=== PATIENT | female | born 1985 | race Caucasian/White ===

== ENCOUNTER 2019-03-10 18:44 | Inpatient (IN) ==
[2019-03-10] MEDS ORDERED: ACETAMINOPHEN 1,000 MG/100 ML VIAL IV STA (19:02)
[2019-03-10] MEDS ORDERED: KETOROLAC TROMETHAMINE 15 MG/ML VIAL IV STA (19:02)
[2019-03-10] MEDS ORDERED: SODIUM CHLORIDE 0.9% 1000ML 2,000 ML IV ONE (19:02)
[2019-03-10] MEDS ORDERED: DEXAMETHASONE SOD PHOSPHATE 10 MG in SYRINGE 0 ML IV STA (19:02)
[2019-03-10] MEDS ORDERED: AMPICILLIN/SULBACTAM SOD 3,000 MG in 0.9 % SODIUM CHLORIDE 100 ML IV STA (19:04)
[2019-03-10] MEDS ORDERED: DEXAMETHASONE **PF** INJ 10 MG/ML VIAL ONE (19:24)
[2019-03-10 19:30] LABS: Basophils # (auto) 0.02 K/uL (0-0.2); Basophils % (auto) 0.1 %; Eosinophils # (auto) 0.04 K/uL (0-0.5); Eosinophils % (auto) 0.2 %; Hematocrit (blood only) 38.9 % (37-47); Hemoglobin 13.5 g/dL (12.0-16.0); Immature Granulocytes # (auto) 0.07 K/uL (0.00-0.02); Immature Granulocytes % (auto) 0.4 %; Lymphocytes # (auto) 0.89 K/uL (1.2-3.4); Lymphocytes % (auto) 4.6 %; Mean Corpuscular Hgb Conc 34.7 g/dL (32-36); Mean Corpuscular Volume 87.6 fL (80-100); Mean Platelet Volume 10.6 fL (7.4-10.4); Monocytes # (auto) 1.53 K/uL (0.11-0.59); Neutrophils # (auto) 16.65 K/uL (1.4-6.5); Neutrophils % (auto) 86.7 %; Platelet Count 138 K/uL (130-400); RDW Coefficient of Variation 13.7 % (11.5-14.5); Red Blood Count 4.44 M/uL (4.2-5.4)
[2019-03-10 19:49] LABS: Albumin Level 3.6 gm/dl (3.4-5.0); BUN Creatinine Ratio 7.6 (10-20); Creatinine Clr Calc Pharmacy 79.1 ml/min; Est GFR (African American) 83.3; Est GFR (Non-African American) 71.9; Potassium 3.2 mmol/L (3.5-5.1)
[2019-03-10 19:52] LABS: Albumin Globulin Ratio 0.9 (0.9-2); Bilirubin,Total 0.5 mg/dl (0.2-1); Globulin 3.9 gm/dl (2.5-4.0); Total Protein 7.5 gm/dl (6.4-8.2)
[2019-03-10 20:19] LABS: Pregnancy Test, Serum Negative (Negative)
[2019-03-10] MEDS ORDERED: IOVERSOL 100ml IV PRN (20:31)
--- NOTE | 2019-03-10 20:45 | CT Scan Report ---
CT SCAN OF THE NECK WITH IV CONTRAST CLINICAL HISTORY: Dysphagia. Trismus. Left-sided neck pain and lump. COMPARISON STUDY: CT scan of the cervical spine dated 11/17/2013. TECHNIQUE: Following the IV administration of 94 cc of Optiray 320, CT scan of the soft tissues of th e neck was performed from the skull base to the upper chest. Images are reviewed in the axial, sagitt al, and coronal planes. IV contrast was administered without complication. A dose lowering techniqu e was utilized adhering to the principles of ALARA. CT DOSE: 618.04 mGy.cm FINDINGS: Pharynx: There is marked mucosal thickening and hyperemia involving the oropharyngeal soft tissues. T his significantly narrows the airway. Phlegmonous change is noted within the tonsils, left greater th an right. No organized fluid collection is clearly seen to indicate abscess. Inflammatory change is s een within the submental and submandibular soft tissues. There is mild edema of the retropharyngeal s oft tissues. There is infiltration of the left parapharyngeal fat. The vocal cords are symmetric. The epiglottis is normal. Dentition: Numerous dental caries are identified. No periapical lucencies or cortical breakthrough is seen. Lymphadenopathy: There are numerous mildly enlarged cervical lymph nodes bilaterally, left greater th an right. The largest is on the left seen on image #179. This measures 2.4 x 1.4 cm. Thyroid: Normal in size and attenuation. A 5 mm low-attenuation nodule is noted in the right lobe. Salivary glands: The parotid glands and right submandibular gland are normal in appearance. The left submandibular gland appears mildly enlarged and edematous, with surrounding fluid. Brain parenchyma: The visualized brain parenchyma at the skull base is normal in appearance. Vascular structures: The carotid arteries and jugular veins are widely patent. Skeletal structures: Imaged portions of the calvarium at the skull base are within normal limits. The cervical spine appears intact. Orbits: The bony orbits are intact. Orbital contents are normal in appearance. Sinuses and mastoids: The visualized paranasal sinuses are clear. The mastoid air cells are well pneu matized. Lung apices: Visualized apical lung parenchyma is clear. IMPRESSION: 1. Findings consistent with severe pharyngitis/tonsillitis. 2. Phlegmonous change is identified in the tonsils with no organized fluid collection clearly identif ied. 3. There is significant inflammatory change surrounding the pharynx which involves the sublingual, mccray bmental, retropharyngeal, and left parapharyngeal spaces. The appearance is highly concerning for Dane wig's angina. 4. There is significant narrowing of the oropharyngeal airway. 5. Inflammatory change involving the left submandibular gland likely represents a secondary adenitis. Clinical correlation will be required. 6. There are numerous dental caries identified. No periapical lucencies or cortical breakthrough are seen. 7. Numerous mildly enlarged cervical lymph nodes are likely on a reactive basis. 8. The jugular veins are patent bilaterally. Electronically signed by: Dane Sykes M.D. 03/10/2019 8:43 PM
[2019-03-10] MEDS ORDERED: LACTATED RINGER'S 1,000 ML IV STA (20:47)
[2019-03-10] MEDS ORDERED: PIPERACILLIN/TAZOBACTAM 4.5 GM/120 ML BAG IV ONE ×2 (20:47→20:48)
[2019-03-10] MEDS ORDERED: PIPERACILL/TAZOBAC CONSULT ACTIVE PRN (20:47)
--- NOTE | 2019-03-10 21:53 | Emergency Department Note ---
Entered by Tasha Ryan acting as a scribe for History of Present Illness General Chief complaint: Throat Pain Stated complaint: THROAT GLANDS SWOLLEN UNABLE TO SWALLOW Time Seen by Provider: 03/10/19 18:51 Source: patient History of Present Illness Onset (ago): day(s) 2 Location: mouth (throat ) Pain Consistency: + other (worsening) Maximum Pain Intensity: 10 Associated symptoms: + other (positive difficulty swallowing; positive swollen) Treatments prior to arrival: other (Augmentin) The patient is a 33 year old female who presents to the Emergency Room with complaints of worsening throat pain that began 2 days prior to arrival. The patient states that her throat is swollen and she is unable to swallow without pain. She states that she has more pain on her left side than right side of her throat. The patient states that she was seen here yesterday for fluid in her ear and similar symptoms and was given Augmentin. Home Medications Home Medications Medication Instructions Recorded Confirmed Type ibuprofen 400 mg PO BID PRN 05/24/18 03/10/19 History omeprazole 20 mg PO QPM 05/24/18 03/10/19 History quetiapine 100 mg PO BID 05/24/18 03/10/19 History amoxicillin-pot clavulanate 1 tab PO Q12H 10 Days #20 tab 03/09/19 03/10/19 Rx [Augmentin] bupropion HCl [Wellbutrin SR] 150 mg PO BID 03/09/19 03/10/19 History Allergies Allergy/AdvReac Type Severity Reaction Status Date / Time tramadol Allergy Intermediate RASH Verified 03/10/19 19:11 Fish Containing Products Allergy Unknown Unknown Verified 03/10/19 19:11 Past Med/Surg History Medical History Accidental overdose of heroin (Acute) Chronic dental pain (Acute) Social History Preferred Language: Wolof Current Living Situation: Other Feels Safe at Home: Yes Smoking Status: Current every day smoker Hx Substance Use: Yes Review of Systems See HPI for pertinent positives & negatives. and A total of 10 systems reviewed and were otherwise negative Physical Exam Vital Signs Vital Signs - 24 hr 03/10/19 18:47 03/10/19 19:29 03/10/19 19:30 Temperature 37.9 C H Temperature Source Oral Sepsis Recent Fever Within 48 Hours No Sepsis New/Unexplained Change in Mental Status No Sepsis Action Taken by Nursing No Action Required Pulse Rate 134 H 122 H Pulse Rate [Apical] 124 H Pulse Rate from SpO2 Sensor 124 H Respiratory Rate 16 25 H 20 Blood Pressure 117/75 115/80 Blood Pressure [Left Arm] 115/80 Blood Pressure Mean 89 91 Blood Pressure Mean [Left Arm] 91 Pulse Oximetry 100 100 97 Oxygen Delivery Method Room Air Room Air Room Air 03/10/19 20:00 03/10/19 21:00 03/10/19 21:30 Temperature Temperature Source Sepsis Recent Fever Within 48 Hours Sepsis New/Unexplained Change in Mental Status Sepsis Action Taken by Nursing Pulse Rate 113 H 108 H 106 H Pulse Rate [Apical] Pulse Rate from SpO2 Sensor 113 H 108 H 106 H Respiratory Rate 15 23 17 Blood Pressure 110/81 105/76 121/80 Blood Pressure [Left Arm] Blood Pressure Mean 90 85 93 Blood Pressure Mean [Left Arm] Pulse Oximetry 100 99 98 Oxygen Delivery Method Room Air Room Air Room Air 03/10/19 21:39 Temperature Temperature Source Sepsis Recent Fever Within 48 Hours Sepsis New/Unexplained Change in Mental Status Sepsis Action Taken by Nursing Pulse Rate 110 H Pulse Rate [Apical] Pulse Rate from SpO2 Sensor Respiratory Rate 26 H Blood Pressure 114/76 Blood Pressure [Left Arm] Blood Pressure Mean 88 Blood Pressure Mean [Left Arm] Pulse Oximetry Oxygen Delivery Method GENERAL: Awake, alert, uncomfortable-appearing, in no distress HENT: Normocephalic, atraumatic. Poor dentition. Moderate to severe posterior pharyngeal edema that is asymmetric with fullness of the left peritonsillar region and soft palette. Mild tongue elevation and trismus with submandibular fullness and tenderness without crepitus. No pain with tracheal manipulation. Mild left ear effusion without injection. EYES: Normal conjunctiva. Sclera non-icteric. NECK: Supple. No nuchal rigidity. FROM. No JVD. RESPIRATORY: CTAB. No stridor. CARDIAC: Tachycardic rate, normal rhythm. Extremities warm and well perfused. Pu lses equal. ABDOMEN: Soft, non-distended. No tenderness to palpation. No rebound or guarding. No masses. RECTAL: Deferred. MUSCULOSKELETAL: Chest examination reveals no tenderness. The back is symmetr ical on inspection without obvious abnormality. There is no CVA tenderness to palpation. No joint edema. LOWER EXTREMITIES: Calves are equal size bilaterally and non-tender. No edema. No discoloration. NEURO: Normal sensorium. No sensory or motor deficits noted. SKIN: No rash or jaundice noted. Course 1852: Past medical records reviewed. The patient was evaluated in room B8. A complete history and physical exam was performed. 2008: I discussed the case with Dr. [facility] who agreed with the plan for further evaluation in the hospital and IV antibiotics. She states that given the airway is fine at this point, there is no need for emergent intervention and the inpatient team can consult them. 2052: I discussed the case with [facility] who accepts the patient for further evaluation. 2105: Upon reevaluation, the patient is feeling better. She is able to swallow more comfortably now and is agreeable to further evaluation. Consultations Consultation #1: I discussed the case with Dr. Canada-[facility] who agreed with the plan for further evaluation in the hospital and IV antibiotics. She states that given the airway is fine at this point, there is no need for emergent intervention and the inpatient team can consult them. Time: 20:09 Consultation #2: I discussed the case with Dr. Rodríguez Hospitalist who accepts the patient for further evaluation. Time: 20:53 Administered Medications Piperacillin Sod/Tazobactam Sod (Zosyn) 4.5 gm in 120 mls @ 30 mls/hr IV NOW ONE Stop: 03/11/19 00:46 Last Infusion: 03/10/19 22:08 Dose: 0 mls/hr Documented by: [id number] Admin: 03/10/19 21:07 Dose: 200 mls/hr Documented by: [id number] Ioversol (Optiray 320 100ml) 94 ml IV ONCE PRN PRN Reason: Interaction Checking Stop: 03/14/19 20:30 Last Admin: 03/10/19 20:31 Dose: 94 ml Documented by: [id number] Discontinued Medications Dexamethasone Sodium Phosphate (Decadron Pf) Confirm Administered Dose 10 mg .ROUTE .STK-MED ONE Stop: 03/10/19 19:25 Last Admin: 03/10/19 19:38 Dose: 10 mg Documented by: [id number] Acetaminophen (Ofirmev) 1,000 mg in 100 mls @ 400 mls/hr IV NOW STA Stop: 03/10/19 19:16 Last Infusion: 03/10/19 19:36 Dose: 0 mls/hr Documented by: [id number] Admin: 03/10/19 19:21 Dose: 400 mls/hr Documented by: [id number] Ampicillin Sodium/Sulbactam Sodium 3,000 mg/ Sodium Chloride 108 mls @ 200 mls/hr IV NOW STA; Protocol Stop: 03/10/19 19:36 Last Infusion: 03/10/19 20:14 Dose: 0 mls/hr Documented by: [id number] Admin: 03/10/19 19:41 Dose: 200 mls/hr Documented by: [id number] Dexamethasone Sodium Phosphate (10 mg/ Syringe) 2.5 mls @ 1 mls/min IV NOW STA Stop: 03/10/19 19:04 Last Admin: 03/10/19 19:38 Dose: Not Given Documented by: [id number] Sodium Chloride (Nss 1000ml) 2,000 mls @ 999 mls/hr IV .Q2H1M ONE Stop: 03/10/19 21:02 Last Infusion: 03/10/19 21:23 Dose: 0 mls/hr Documented by: [id number] Admin: 03/10/19 19:22 Dose: 999 mls/hr Documented by: [id number] Lactated Ringer's (Lr) 1,000 mls @ 999 mls/hr IV .Q1H1M STA Stop: 03/10/19 21:47 Last Infusion: 03/10/19 22:45 Dose: 0 mls/hr Documented by: [id number] Admin: 03/10/19 22:08 Dose: 999 mls/hr Documented by: [id number] Piperacillin Sod/Tazobactam Sod (Zosyn) 4.5 gm in 120 mls @ 30 mls/hr IV NOW ONE Stop: 03/11/19 00:47 Last Admin: 03/10/19 22:27 Dose: Not Given Documented by: [id number] Ketorolac Tromethamine (Toradol) 15 mg IV NOW STA Stop: 03/10/19 19:03 Last Admin: 03/10/19 19:21 Dose: 15 mg Documented by: [id number] Medical Decision Making Differential Diagnosis Differential diagnosis: Etiologies such as viral syndrome, tonsillitis, streptococcal pharyngitis, mononucleosis, peritonsillar abscess, retropharyngeal abscess, otitis, pneumonia, influenza, as well as others were entertained. Medical Records Attestation: I reviewed the patient's medical records. Home Medications Current Medication List: was personally reviewed by me Laboratory Data Attestation: I reviewed the patient's lab results. Result diagrams: 03/10/19 19:08 03/10/19 19:08 Lab Results 03/10/19 03/10/19 03/10/19 Range/Units 19:08 19:08 19:08 WBC 19.20 H (4.8-10.8) K/uL RBC 4.44 (4.2-5.4) M/uL Hgb 13.5 (12.0-16.0) g/dL Hct 38.9 (37-47) % MCV 87.6 (80-100) fL MCH 30.4 (25-34) pg MCHC 34.7 (32-36) g/dL RDW Std Deviation 44.0 (36.4-46.3) fL RDW Coeff of [place] 13.7 (11.5-14.5) % Plt Count 138 (130-400) K/uL MPV 10.6 H (7.4-10.4) fL Immature Gran % (Auto) 0.4 % Neut % (Auto) 86.7 % Lymph % (Auto) 4.6 % [place] % (Auto) 8.0 % Eos % (Auto) 0.2 % Baso % (Auto) 0.1 % Immature Gran # (Auto) 0.07 H (0.00-0.02) K/uL Neut # (Auto) 16.65 H (1.4-6.5) K/uL Lymph # (Auto) 0.89 L (1.2-3.4) K/uL [place] # (Auto) 1.53 H (0.11-0.59) K/uL Eos # (Auto) 0.04 (0-0.5) K/uL Baso # (Auto) 0.02 (0-0.2) K/uL Sodium 139 (136-145) mmol/L Potassium 3.2 L (3.5-5.1) mmol/L Chloride 104 (98-107) mmol/L Carbon Dioxide 25 (21-32) mmol/L Anion Gap 10.0 (3-11) BUN 8 (7-18) mg/dl Creatinine 1.03 (0.6-1.2) mg/dl Est Cr Clr Drug Dosing 79.1 ml/min Est GFR ( Amer) 83.3 Est GFR (Non-Af Amer) 71.9 BUN/Creatinine Ratio 7.6 L (10-20) Glucose 146 H (70-99) mg/dl Calcium 9.0 (8.5-10.1) mg/dl Total Bilirubin 0.5 (0.2-1) mg/dl AST 6 L (15-37) U/L ALT 15 (12-78) U/L Alkaline Phosphatase 77 (45-117) U/L Total Protein 7.5 (6.4-8.2) gm/dl Albumin 3.6 (3.4-5.0) gm/dl Globulin 3.9 (2.5-4.0) gm/dl Albumin/Globulin Ratio 0.9 (0.9-2) HCG, Qual Negative (Negative) Imaging Data Radiologist's Impression: Radiology results as stated below per my review and the radiologist's interpretation: CT SCAN OF THE NECK WITH IV CONTRAST CLINICAL HISTORY: Dysphagia. Trismus. Left-sided neck pain and lump. COMPARISON STUDY: CT scan of the cervical spine dated 11/17/2013. TECHNIQUE: Following the IV administration of 94 cc of Optiray 320, CT scan of the soft tissues of the neck was performed from the skull base to the upper c hest. Images are reviewed in the axial, sagittal, and coronal planes. IV contrast was administered without complication. A dose lowering technique was utilized adhering to the principles of ALARA. CT DOSE: 618.04 mGy.cm FINDINGS: Pharynx: There is marked mucosal thickening and hyperemia involving the oropharyngeal soft tissues. This significantly narrows the airway. Phlegmonous change is noted within the tonsils, left greater than right. No organized fluid collection is clearly seen to indicate abscess. Inflammatory change is seen within the submental and submandibular soft tissues. There is mild edema of the retropharyngeal soft tissues. There is infiltration of the left parapharyngeal fat. The vocal cords are symmetric. The epiglottis is normal. Dentition: Numerous dental caries are identified. No periapical lucencies or cortical breakthrough is seen. Lymphadenopathy: There are numerous mildly enlarged cervical lymph nodes bilaterally, left greater than right. The largest is on the left seen on image #179. This measures 2.4 x 1.4 cm. Thyroid: Normal in size and attenuation. A 5 mm low-attenuation nodule is noted in the right lobe. Salivary glands: The parotid glands and right submandibular gland are normal in appearance. The left submandibular gland appears mildly enlarged and edematous, with surrounding fluid. Brain parenchyma: The visualized brain parenchyma at the skull base is normal in appearance. Vascular structures: The carotid arteries and jugular veins are widely patent. Skeletal structures: Imaged portions of the calvarium at the skull base are within normal limits. The cervical spine appears intact. Orbits: The bony orbits are intact. Orbital contents are normal in appearance. Sinuses and mastoids: The visualized paranasal sinuses are clear. The mastoid air cells are well pneumatized. Lung apices: Visualized apical lung parenchyma is clear. IMPRESSION: 1. Findings consistent with severe pharyngitis/tonsillitis. 2. Phlegmonous change is identified in the tonsils with no organized fluid collection clearly identified. 3. There is significant inflammatory change surrounding the pharynx which involves the sublingual, submental, retropharyngeal, and left parapharyngeal spaces. The appearance is highly concerning for David's angina. 4. There is significant narrowing of the oropharyngeal airway. 5. Inflammatory change involving the left submandibular gland likely represents a secondary adenitis. Clinical correlation will be required. 6. There are numerous dental caries identified. No periapical lucencies or cortical breakthrough are seen. 7. Numerous mildly enlarged cervical lymph nodes are likely on a reactive basis. 8. The jugular veins are patent bilaterally. Electronically signed by: Dane Sykes M.D. 03/10/2019 8:43 PM Blood Pressure Blood Pressure Findings: Normal blood pressure MDM Narrative The patient is a pleasant 33-year-old woman with a past medical history of prior heroin abuse who presents emergency department with worsening sore throat and painful swallowing after being seen in the ED yesterday for primarily left ear pain in the setting of a diagnosis last winter of chronic ear effusion per hpi. Arrival patient is uncomfortable but no acute distress, temperature of 37.9 and tachycardic to 130s but vital signs otherwise stable. Patient denies chest pain or shortness of breath. On exam the patient has moderate to severe posterior pharyngeal edema and injection that is asymmetric with fullness of the left peritonsillar region and soft palate. There is mild tongue elevation and trismus but patient is able to handle her own secretions without difficulty. She has moderate tenderness and fullness to the submandibular region without crepitus. There is no pain with tracheal manipulation or stridor. WBC 19 K. H/H and platelets within normal limits. Chemistry without acidosis. LFTs unremarkable. Given concern for possible David angina CT of the neck was ordered and pending. Given strong suspicion for likely peritonsillar abscess I did discuss the case with Dr. Canada, ENT on-call and we agreed that given the patient's airway is intact, there is no role for emergent intervention at this time and agrees with plan for admission for IV antibiotics and steroids. Recommends 10 mg of IV dexamethasone daily and agrees with broad-spectrum antibiotics if CT confirm David's angina. Blood cultures were drawn prior to initial dose of Unasyn however upon CT report which demonstrated extensive infiltration involving the sublingual, submental, retropharyngeal, and left parapharyngeal spaces, patient was ordered for Zosyn. While CT describes airway narrowing, the patient has no clinical evidence of airway compromise. Throat culture additionally obtained and pen after rapid strep negative. Upon reevaluation patient was feeling improved with less discomfort with swallowing. HR improved from 130s to 100s with BP remaining stable. Patient was agreeable for admission. Case was discussed with Dr. Reece, [facility] hospitalist, who will evaluate the patient for admission. Impression & Plan David's angina, Leukocytosis Critical Care Time Critical Care Time: Yes Total Critical Care Time: 35 I have personally spent 35 minutes of critical care time in the direct management of this patient. This includes bedside care, interpretation of diagnostic studies, and testing, discussion with consultants, patient, and fa oneyda members, and other required patient management activities. This 35 minutes is in excess of all separately billable procedures. Discharge Plan Visit Data Chief Complaint: Throat Pain Stated Complaint: THROAT GLANDS SWOLLEN UNABLE TO SWALLOW ED Provider: Fazal White Discharge Problem: David's angina, Leukocytosis Patient Disposition: Being Evaluated by Hospitalist Discharge Instructions Interventions: ED Discharge Assessment Last Done: 03/10/19 22:44 Discharge Problem: Leukocytosis Qualifiers: Leukocytosis type: unspecified Qualified Code(s): D72.829 - Elevated white blood cell count, unspecified The scribe's documentation has been prepared under my direction and personally reviewed by me in its entirety. I confirm that the note above accurately reflects all work, treatment, procedures, and medical decision making performed by me.
[2019-03-10] MEDS ORDERED: NITROGLYCERIN SL 0.4 MG/TAB TAB SL PRN (22:55)
[2019-03-10] MEDS ORDERED: ACETAMINOPHEN 325 MG TAB PO PRN (22:55)
[2019-03-10] MEDS ORDERED: POTASSIUM CHLORIDE 10 MEQ TABCR PO STA (22:55)
[2019-03-10] MEDS ORDERED: ONDANSETRON INJ 2 MG/ML 2 ML VIAL IV PRN (22:55)
[2019-03-10] MEDS ORDERED: cefTRIAXone SODIUM 2,000 MG in DEXTROSE 5% 50 ML IV SCH (23:00)
[2019-03-10] MEDS: D5NSS + 20MEQ KCL 20 MEQ/1,000 ML BAG IV SCH (23:27)
[2019-03-10] MEDS: metroNIDAZOLE 500 MG/100 ML BAG IV SCH (23:27)
[2019-03-10] MEDS: QUETIAPINE FUMARATE 100 MG TABLET PO SCH (23:27)
[2019-03-10] MEDS: BuPROPion SR 150 MG TABCR PO SCH (23:28)
--- NOTE | 2019-03-11 00:33 | History and Physical Report ---
DATE OF ADMISSION: 03/10/2019 CHIEF COMPLAINT: Throat pain. HISTORY OF PRESENT ILLNESS: This is a 33-year-old female with past medical history significant for otalgia of left ear, history of anxiety and depression, who comes because of throat pain that started on last Monday, she was in the ER yesterday.Was Augmentin and advised to follow with her ENT, but it was not getting better. Had some temperature at home. She states she had some headaches, mild cough, mild shortness of breath and came to the ER. In the ER, the imaging studies show possible David's angina, severe pharyngitis, tonsillitis,and oropharyngeal narrowing. Vitals are stable. She is saturating fine on room air. 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 Currently, patient is resting comfortably. Denies any blurred vision. Has some earaches in the left ear. Has some runny nose, no difficulty swallowing. No chest pain, no nausea, no vomiting, no abdominal pain. Normal bowel and bladder movements. No hematuria, no burning micturition, no black stools, no blood in the stools. No swelling in the legs, no rash. ALLERGIES: TRAMADOL, FISH CONTAINING PRODUCTS. PAST MEDICAL HISTORY: As mentioned above. PAST SURGICAL HISTORY: [place] tooth removal and incomplete . MEDICATIONS: The patient is on Wellbutrin, omeprazole, and Seroquel. FAMILY HISTORY: Significant for mother had ovarian cancer. SOCIAL HISTORY: Smokes half pack a day. No alcohol use, no drug use. REVIEW OF SYMPTOMS: As per HPI. Rest of the review of symptoms negative. PHYSICAL EXAMINATION: GENERAL: The patient is of moderate built, not in acute distress. VITAL SIGNS: Temperature 37.9, pulse 106, respiratory rate 12, blood pressure 121/80, oxygen 98% on room air. HEENT: No pallor, no icterus. Pupils equal, round, and reactive to light. Oral mucosa, swollen tonsils, swollen oropharynx, erythematous pharynx. NECK: No JVD, no neck masses. CARDIOVASCULAR: S1, S2 heard, regular rate and rhythm, no murmur, no gallop. RESPIRATORY SYSTEM: Normal AP diameter. No accessory muscle use. No wheezing, no crackles. ABDOMEN: Soft, bowel sounds present, nontender. No distention. CENTRAL NERVOUS SYSTEM: Nonfocal. EXTREMITIES: No edema, no erythema. LABORATORY DATA: WBC 19.2, hemoglobin 13.5, hematocrit 38.9, platelets 138. Sodium 139, potassium 3.2, chloride 104, bicarbonate 25, BUN 8, creatinine 1.03, serum glucose 146, calcium 9, total bilirubin 0.5, AST 6, ALT 15, alkaline phosphatase 77. HCG quantitative negative. CT scan Soft tissue of the neck shows findings consistent with severe pharyngitis, tonsillitis, phlegmonous changes, and inflamed tonsils. There is no organized fluid collection clearly identified. There is significant inflammatory change seen in the pharynx which is noted to be sublingual, submental ,left parapharyngeal space appearance is highly concerning for David's angina. There is significant narrowing of the oropharyngeal airway. Inflammatory change involving the left submandibular gland, likely represents secondary to adenitis. Numerous dental caries identified. No periapical lucencies or cortical breakthrough are seen. Numerous mildly enlarged cervical lymph nodes, likely on a reactive basis. Jugular veins are patent bilaterally. ASSESSMENT AND PLAN: This is a 33-year-old female who presents with severe pharyngitis, tonsillitis, and David's angina. 1. Severe pharyngitis, tonsillitis, and David's angina . The patient is hemodynamically stable, saturating fine, though the CAT scan shows severe narrowing of the oropharyngeal airway. ENT was called by the ER and advised antibiotics.We will keep patient n.p.o. IV Rocephin 2 grams daily and IV Flagyl 500 mg t.i.d. Iv fluids. Monitor in tele floor. Consult ENT in the a.m. for further recommendation and monitoring. Follow the cultures drawn in the ER and follow the response . 2. Hypokalemia. We will replace. 3. Anxiety and depression. Continue home medications. 4. Deep venous thrombosis prophylaxis, sequential compression devices. DISPOSITION: Admit to tele floor. Expect to discharge home and follow with her family doctor. Level 1 full code. MTDD
[2019-03-11 05:30] LABS: Basophils # (auto) 0.01 K/uL (0-0.2); Basophils % (auto) 0.1 %; Hematocrit (blood only) 35.1 % (37-47); Hemoglobin 11.9 g/dL (12.0-16.0); Immature Granulocytes # (auto) 0.05 K/uL (0.00-0.02); Immature Granulocytes % (auto) 0.3 %; Lymphocytes # (auto) 0.53 K/uL (1.2-3.4); Mean Corpuscular Hgb Conc 33.9 g/dL (32-36); Mean Corpuscular Volume 88.9 fL (80-100); Mean Platelet Volume 10.5 fL (7.4-10.4); Monocytes % (auto) 1.7 %; Neutrophils # (auto) 16.96 K/uL (1.4-6.5); Neutrophils % (auto) 94.9 %; Platelet Count 135 K/uL (130-400); RDW Coefficient of Variation 13.6 % (11.5-14.5); RDW Standard Deviation 44.8 fL (36.4-46.3); Red Blood Count 3.95 M/uL (4.2-5.4); White Blood Count 17.85 K/uL (4.8-10.8)
[2019-03-11] MEDS: D5NSS + 20MEQ KCL 20 MEQ/1,000 ML BAG IV SCH ×2 (05:30→15:57)
[2019-03-11 05:58] LABS: BUN Creatinine Ratio 10.4 (10-20); Calcium 8.1 mg/dl (8.5-10.1); Creatinine Clr Calc Pharmacy 107.2 ml/min; Est GFR (African American) 120.3; Est GFR (Non-African American) 103.8; Magnesium 2.1 mg/dl (1.8-2.4)
[2019-03-11] MEDS: metroNIDAZOLE 500 MG/100 ML BAG IV SCH ×2 (07:34→15:57)
--- NOTE | 2019-03-11 08:02 | Hospitalist Progress Note ---
Date of Service March 11, 2019 Assessment & Plan (1) David's angina: Patient is a 33-year-old female with past medical history of anxiety, comes to ED with complaint of severe throat pain for 3 days. Was in ER yesterday, given Augmentin and advised to follow-up with ENT. Developed fever at home with headache, mild cough/shortness of breath, runny nose which brought her to ED. Imaging showed David's angina, severe pharyngitis, tonsillitis and oropharyngeal narrowing. Severe pharyngitis/tonsillitis/David's angina : Clinically improving Presented to ED again for severe throat pain for 3 days associated with headache, mild cough/shortness of breath, runny nose. CT neck soft tissue consistent with severe pharyngitis/tonsillitis phlegmonous changes in tonsils, significant inflammatory change around pharynx involving sublingual, submental, retropharyngeal, left parapharyngeal spaces highly concerning for David's angina, significant narrowing of oropharyngeal airway. Inflammatory change involving left submandibular gland likely representing a secondary adenitis, numerous dental caries, numerous mildly enlarged cervical lymph nodes. No significant fever spikes, leukocytosis trending down from 19k to 17k SaO2 well on RA with no hypoxia -NPO --> Advance to soft diet -IV Rocephin 2 gram, IV Flagyl 500 mg TID=---> Change to IV Rocephin 1 mg, continue with flagyl -Discussed with ENT-recommends adding IV dexamethasone 8 mg now and 1 more dose in evening. -Follow up throat cultures collected in ED. Strep- Pending Hypokalemia Resolved Anxiety/depression Continue with home medications DVT prophylaxis SCDs Full code Disposition Patient is very eager to be discharged. States that irrespective of the status she would go home today evening as she has couple of court dates. Discussed with ENTwill evaluate her in the evening prior to discharge and okay to follow-up with him outpatient if she is doing better. Expected discharge home when stable with follow-up with PCP Subjective Patient is feeling much better today. Has not required any IV Toradol. Throat pain is improved. No more fever spikes. Eager to be discharged today as has couple of court appointments Physical Exam Physical Exam: GENERAL- AAOX3, No acute distress HEENT- Difficulty opening mouth fully -tonsillitis with exudate, pharyngeal erythema NECK- Supple, no JVD LUNGS- Air entry bilaterally equal. No rales, rhonchi, crackles, wheezes heard. HEART- Regular rate and rhythm. No murmurs SKIN- No rashes Results & Data Vital Signs (Past 12 Hours) Vital Signs Temp Pulse Pulse Resp BP BP Pulse Ox 03/11/19 07:23 36.4 C L 94 H 16 108/66 96 03/11/19 05:32 103/66 03/11/19 03:26 36.4 C L 94 H 20 89/58 L 97 03/10/19 22:55 03/10/19 22:50 36.6 C 98 H 18 119/81 98 03/10/19 22:30 97 H 19 105/75 97 03/10/19 22:00 108 H 22 115/76 96 03/10/19 21:39 110 H 26 H 114/76 03/10/19 21:30 106 H 17 121/80 98 03/10/19 21:00 108 H 23 105/76 99 03/10/19 20:00 113 H 15 110/81 100 Pulse Ox 03/11/19 07:23 03/11/19 05:32 03/11/19 03:26 03/10/19 22:55 98 03/10/19 22:50 03/10/19 22:30 03/10/19 22:00 03/10/19 21:39 03/10/19 21:30 03/10/19 21:00 03/10/19 20:00
[2019-03-11] MEDS: QUETIAPINE FUMARATE 100 MG TABLET PO SCH ×2 (10:16→12:38)
[2019-03-11] MEDS: BuPROPion SR 150 MG TABCR PO SCH ×2 (10:16→12:38)
[2019-03-11] MEDS: KETOROLAC 30 MG/ML VIAL IV PRN ×2 (12:19→18:28)
[2019-03-11] MEDS ORDERED: cefTRIAXone SODIUM 1,000 MG in DEXTROSE 5% 50 ML IV SCH (12:30)
[2019-03-11] MEDS: DEXAMETHASONE SOD PHOSPHATE 8 MG in SYRINGE 0 ML IV SCH ×2 (12:35→18:25)
--- NOTE | 2019-03-11 18:33 | Discharge Summary ---
Date of Service March 11, 2019 Admission HPI Per Admitting Provider HISTORY OF PRESENT ILLNESS: This is a 33-year-old female with past medical history significant for otalgia of left ear, history of anxiety and depression, who comes because of throat pain that started on last Monday, she was in the ER yesterday.Was Augmentin and advised to follow with her ENT, but it was not getting better. Had some temperature at home. She states she had some headaches, mild cough, mild shortness of breath and came to the ER. In the ER, the imaging studies show possible David's angina, severe pharyngitis, tonsillitis,and oropharyngeal narrowing. Vitals are stable. She is saturating fine on room air. The ER physician talked to the ENT consumer studies professor and advised for antibiotics. Currently, patient is resting comfortably. Denies any blurred vision. Has some earaches in the left ear. Has some runny nose, no difficulty swallowing. No chest pain, no nausea, no vomiting, no abdominal pain. Normal bowel and bladder movements. No hematuria, no burning micturition, no black stools, no blood in the stools. No swelling in the legs, no rash. Principal Diagnosis 1. Severe Bilateral Tonsillitis 2. Hypokalemia Secondary diagnoses on discharge 1. Anxiety/depression Discharge Exam GENERAL- AAOX3, No acute distress HEENT- Difficulty opening mouth fully -tonsillitis with exudate, pharyngeal erythema NECK- Supple, no JVD LUNGS- Air entry bilaterally equal. No rales, rhonchi, crackles, wheezes heard. HEART- Regular rate and rhythm. No murmurs SKIN- No rashes Discharge Data Allergies Allergy/AdvReac Type Severity Reaction Status Date / Time tramadol Allergy Intermediate RASH Verified 03/10/19 19:11 Fish Containing Products Allergy Unknown Unknown Verified 03/10/19 19:11 Consultations 03/10/19 21:34 ED Decision to Admit Stat 03/11/19 08:00 Consult Otolaryngology (Head and Neck) Routine Ordered Studies 03/10/19 20:01 CT soft tissue neck w con Stat Hospital Course (1) David's angina: Patient is a 33-year-old female with past medical history of anxiety, comes to ED with complaint of severe throat pain for 3 days. Was in ER yesterday, given Augmentin and advised to follow-up with ENT. Developed fever at home with headache, mild cough/shortness of breath, runny nose which brought her to ED. Imaging showed David's angina, severe pharyngitis, tonsillitis and oropharyngeal narrowing. Severe pharyngitis/tonsillitis: Clinically improving Presented to ED again for severe throat pain for 3 days associated with headache, mild cough/shortness of breath, runny nose. CT neck soft tissue consistent with severe pharyngitis/tonsillitis phlegmonous changes in tonsils, significant inflammatory change around pharynx involving sublingual, submental, retropharyngeal, left parapharyngeal spaces highly concerning for David's angina, significant narrowing of oropharyngeal airway. Inflammatory change involving left submandibular gland likely representing a secondary adenitis, numerous dental caries, numerous mildly enlarged cervical lymph nodes. No significant fever spikes, leukocytosis trending down from 19k to 17k SaO2 well on RA with no hypoxia -Tolerating full liquid diet -IV Rocephin 1 gram, IV Flagyl 500 mg TID=---> Change to Augmentin X 8 more days to complete 10 days of antibiotics on discharge -IV Dexamathasone 8 mg x 2 doses received--> Change to Medrol dose pack on discharge -Throat culture , Strep- negative -Per ENT, this is not ludwigs angina as this is a clinical diagnosis not a radiographic diagnosis. She has bilateral tonsillitis with spontaneous decompression of a likely small left tushar-tonsillar abscess on exam. Hypokalemia Resolved Anxiety/depression Continue with home medications DVT prophylaxis SCDs Full code Disposition Patient is very eager to be discharged. States that irrespective of the status she would go home today evening as she has couple of court dates. Discussed with [facility] for discharge with follow up with them in 1 week Ok to discharge home today Total Time Total Time Spent Total Time Spent (In Minutes): 25 minutes Discharge Plan Discharge Items Patient Disposition: Home - Self-Care Reason For Visit: THROAT PAIN Discharge Diagnosis: Severe bilateral tonsillitis Discharge Goals: Improve disease control Activity: Resume your previous activity Non-emergency contact: Primary Care Provider Call non-emergency contact if: your symptoms worsen and your temperature is above 101.5 Follow-up/Referrals: Susy Carver DO [Primary Care Provider] - 03/15/19 10:45 am CARMEN PATTERSON [Other] (Office will call you for appt within 1 week) Diet: Regular Diet Texture: Mechanical soft (ground) Addtl Provider Instructions: You were admitted to the hospital for severe pharyngitis/tonsillitis/David's angina you were treated with IV antibiotics, IV steroids. MEDICATION CHANGES : 1. Augmentin PO twice a day for 8 more days to complete total of 10 days of antibiotics 2. Medrol dose pack as directed Diet- advance slowly as tolerated Eat low carbohydrate diet as blood sugars have been running high while on steroids. Prescriptions: New methylprednisolone [Medrol (Amadeo)] 4 mg tablets,dose pack 4 mg PO UD Qty: 21 RF: 0 Continued quetiapine 100 mg Tablet 100 mg PO BID RF: 0 ibuprofen 200 mg Tablet 400 mg PO BID PRN (Reason: Pain) RF: 0 omeprazole 20 mg Capsule,Delayed Release(Dr/Ec) 20 mg PO QPM RF: 0 amoxicillin-pot clavulanate [Augmentin] 875-125 mg tablet 1 tab PO Q12H 10 Days Qty: 20 RF: 0 bupropion HCl [Wellbutrin SR] 150 mg Tablet Sustained-Release 12 Hr 150 mg PO BID RF: 0 Stand-Alone Forms: [employer] [facility] [employer] [facility]/Other Patient Handouts: Pharyngitis Tonsillitis Discharge Orders: Discharge Order (Routine); Ordered 03/11/19 Ordered By: Cari Rogers Admission Data Admit Date/Time: 03/10/19 21:49 Attending Provider: Cari Rogers Admit Provider: João Reece Primary Care Provider: Susy Carver Other Providers: João Reece ; Carmela Shannon Service: Telemetry
--- NOTE | 2019-03-11 18:35 | ENT Consultation ---
Date of Consultation March 11, 2019 Assessment & Plan (1) Tonsillitis: Patient does not have David's angina. This is a clinical diagnosis, with support from radiography. Not a radiographic diagnosis alone. She has bilateral tonsillitis with spontaneous decompression of a likely small left peritonsillar abscess on exam. She is feeling much better on antibiotics and steroids. She is insistent she go home tonight. If she demands to go home, would ensure she is sent on antibiotic in addition to a prednisone taper. I will have my office call her to make a follow up appointment next week. Present on Admission?: Yes History of Present Illness Reason for Consultation: Attending Physician: Cari Rogers History of Present Illness 33 yo female with a several day history of sore throat, admitted last night after a CT scan was obtained in the ED showing bilateral tonsillar hypertrophy and reactive parapharyngeal and retropharyngeal changes. She had some trismus at that time. She was treated for one day with augmentin prior to her arrival to the ED last night. Was seen in the ED Monday and sent home with the Augmentin. She states that she is feeling markedly better this evening after antibiotic and steroid treatment in the hospital. She has told the hospitalist service she needs to leave tonight as she has court dates tomorrow. She denies recurrent tonsillitis. States that she did feel a spontaneous relief of left sided throat pressure this am and did then get some foul taste in her mouth. States her trismus improved. Denies any current dyspnea, shortness of breathe. Denies dysphagia. Allergies Allergy/AdvReac Type Severity Reaction Status Date / Time tramadol Allergy Intermediate RASH Verified 03/10/19 19:11 Fish Containing Products Allergy Unknown Unknown Verified 03/10/19 19:11 Home Medications Home Medications Medication Instructions Recorded Confirmed Type ibuprofen 400 mg PO BID PRN 05/24/18 03/10/19 History omeprazole 20 mg PO QPM 05/24/18 03/10/19 History quetiapine 100 mg PO BID 05/24/18 03/10/19 History amoxicillin-pot clavulanate 1 tab PO Q12H 10 Days #20 tab 03/09/19 03/10/19 Rx [Augmentin] bupropion HCl [Wellbutrin SR] 150 mg PO BID 03/09/19 03/10/19 History methylprednisolone [Medrol (Amadeo)] 4 mg PO UD #21 ea 03/11/19 Rx Patient History Medical History Accidental overdose of heroin (Acute) Chronic dental pain (Acute) Social History Preferred Language: Macedonian Communication Ability: Effective Associate Curator Required: No Beliefs That Will Affect Care: None Current Living Situation: Alone Other Information That Helps Us Care for You: No Feels Safe at Home: Yes Safety Concerns: Feels Safe At This Time Smoking Status: Current every day smoker Hx Alcohol Use: No Hx Substance Use: No Review of Systems Review of Systems: All systems reviewed & are unremarkable except as noted in HPI & below Physical Exam Constitutional: WD/WN, vitals as above well developed; + not well nourished Eyes: PERRL, conjunctivae normal, anicteric sclerae ENMT: Ears: no hearing impairment Nose: no external nose abnormality Throat: uvula midline and + posterior oropharynx abnormality Bilateral 3+ exudative tonsils. Left peritonsillar region with spontaneous decompressed area noted with some minimal purulence draining. No trismus. Floor of mouth is soft. Neck: trachea midline, no thyromegaly bilateral, left worse than right cervical adenopathy Respiratory: normal respiratory effort, lungs clear to auscultation Cardiovascular: Rate/Rhythm: regular rate and regular rhythm Neurologic: CN's II-XI intact bilaterally Lymphatic: + lymphadenopathy and + cervical lymphadenopathy Results & Data Vital Signs (Past 12 Hours) Vital Signs Temp Pulse Pulse Resp BP Pulse Ox 03/11/19 16:00 95 H 03/11/19 15:28 36.5 C 103 H 18 103/68 98 03/11/19 11:40 36.4 C L 98 H 17 115/74 100 03/11/19 07:23 36.4 C L 94 H 16 108/66 96
[2019-03-11] MEDS ORDERED: PANTOprazole 40 MG TAB PO SCH (21:00)
== END 2019-03-11 19:48 | disposition home or self-care (01) | DRG 153 ==
LOC: ED 18:44 → 2E 21:49